=== PATIENT | female | born 1945 | race African-American/Black ===

== ENCOUNTER 2017-12-18 06:22 | Day surgery (SDC) | payer OTHER ==
[~2017-12-18] VITALS: Ht 162.6 cm; Wt 67.6 kg
[~2017-12-18 06:22] MED LIST: ALBU6.7H IH; ASCO-419 PO; ASPI-1159 PO; MULT-1146 PO; MV-M1TAB22 PO
[2017-12-18] MEDS ORDERED: LACTATED RINGERS 1,000 ML IV SCH (07:15)
[2017-12-18] MEDS ORDERED: BUPIVACAINE HCL 0.5% (5MG/ML) 50ML ONE (07:56)
[2017-12-18] MEDS ORDERED: SKIN ADHESIVE 0.7 GM EA TOP ONE (07:56)
[2017-12-18] MEDS ORDERED: ROCURONIUM BROMIDE 10MG/ML VIAL 5ML IV ONE (08:30)
[2017-12-18] MEDS ORDERED: DEXAMETHASONE 4MG/ML 1ML VIAL ONE (08:54)
[2017-12-18] MEDS ORDERED: CEFAZOLIN SODIUM 1000MG/VIAL ONE (08:54)
[2017-12-18] MEDS ORDERED: ONDANSETRON HCL 4MG/2ML VIAL ONE (08:54)
[2017-12-18] MEDS ORDERED: HYDROMORPHONE HCL/PF 2MG/ML CPJ IV PRN (09:00)
[2017-12-18] MEDS ORDERED: LABETALOL 5MG/ML SYR 20 MG/4 ML SYRINGE IV PRN (09:00)
[2017-12-18] MEDS ORDERED: MEPERIDINE HCL/PF 25MG/ML CPJ IV PRN (09:00)
[2017-12-18] MEDS ORDERED: GLYCOPYRROLATE 0.2 MG/ML 2ML VIAL ONE ×2 (09:07→09:48)
[2017-12-18] MEDS ORDERED: LEVOFLOXACIN 500MG PREMIX 100 ML IV ONE (09:22)
[2017-12-18] MEDS ORDERED: NEOSTIGMINE METHYLSULFATE 1MG/ML 10 ML VIAL ONE (09:47)
[2017-12-18] MEDS: ONDANSETRON HCL 4MG/2ML VIAL IV PRN ×2 (10:54→12:17)
[2017-12-18 10:55] VITALS: BP 125/66
[2017-12-18] MEDS ORDERED: PHENOL/SODIUM PHENOLATE 1.4% SRPAY 177ML MM ONE (13:00)
== END 2017-12-18 13:35 | disposition home or self-care (01) ==
LOC: OR 06:22
PROVIDERS: ATTEND Surgery
DX: K80.10 Calculus of gallbladder with chronic cholecystitis without obstruction (principal); J45.909 Unspecified asthma, uncomplicated; J44.9 Chronic obstructive pulmonary disease, unspecified; Z88.0 Allergy status to penicillin; Z88.5 Allergy status to narcotic agent; Z98.890 Other specified postprocedural states
CPT/HCPCS: 47562; 88304; G0168; J0690; J1100; J1956; J2175; J2405; J2710; J3490; J7030; J7120; S2900